=== PATIENT | male | born 1960 | race Caucasian/White ===

== ENCOUNTER 2016-11-12 20:20 | Emergency (ER) | payer MEDICAID ==
[2016-11-12 20:37] VITALS: BP 119/82; PULSE 64; RESP 16; TEMP 99; O2SAT 97
--- NOTE | 2016-11-12 20:55 | EDPHY ---
H & P Stated Complaint: says he was lifting something and felt some movement in lower back,c/o pain Time Seen by Provider: 11/12/16 20:43 HPI/ROS: CHIEF COMPLAINT: Lower back pain. HISTORY OF PRESENT ILLNESS: The patient is a 55-year-old male who presents with sacroiliac pain that began 4 days ago while lifting weights. He felt something "slip out of place at that time." The pain is radiating laterally across his back and into his buttocks. It does not radiate down a leg. No numbness, weakness, or paresthesias. Pain is worsened with movement. He admits reduced urinary output and "digestive problems." No incontinence. He has taken half of a Tramadol for the pain and used heat therapy. No fever, chills, chest pain, shortness of breath, palpitations, vomiting, diarrhea, urinary complaints , headache, lightheadedness. REVIEW OF SYSTEMS: Aside from elements discussed in the HPI, a comprehensive 10-point review of systems was reviewed and is negative. PAST MEDICAL HISTORY: Depressant. 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 VITAL SIGNS: Reviewed by me BACK: No CVA tenderness. No midline vertebral tenderness, swelling, or warmth. Tenderness over right SI joint to deep palpation.. EXTREMITIES: No trauma. No edema. Range of motion is normal throughout. NEURO: Alert and oriented, grossly nonfocal. Straight leg raise test is negative bilaterally. Hip flexion, knee extension, knee flexion, dorsiflexion and plantar flexion are 5/ 5 bilaterally. EHL 5 over 5. Sensation is intact to light touch throughout. 2+ knee and ankle jerk bilaterally. SKIN: Warm and dry, no rash. PSYCHIATRIC: Normal mentation, no agitation. Portions of this note were transcribed by a electromedical equipment technician. I personally performed a history, physical exam, medical decision making, and confirmed accuracy of information the transcribed note. 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; inguinal hernia; R hip surg, depression/anxiety - Social History Smoking Status: Former smoker Constitutional: Initial Vital Signs Temperature (C) 37.2 C 11/12/16 20:33 Heart Rate 64 11/12/16 20:33 Respiratory Rate 16 11/12/16 20:33 Blood Pressure 119/82 H 11/12/16 20:33 O2 Sat (%) 97 11/12/16 20:33 O2 Delivery Mode Room Air Allergies/Adverse Reactions: acetaminophen [From Vicodin] Allergy (Intermediate, Verified 11/12/16 20:37) Other-Enter Comments codeine Allergy (Intermediate, Verified 11/12/16 20:37) Other-Enter Comments hydrocodone bitartrate [From Vicodin] Allergy (Intermediate, Verified 11/12/16 20:37) Other-Enter Comments Home Medications: Medication Instructions Recorded Herbals/Supplements -Info Only 1 ea PO DAILY 01/18/16 Multivitamins [Multivitamin (*)] 1 each PO DAILY 01/18/16 Carisoprodol [Soma (*)] 350 mg PO TIDMEAL PRN #15 tab 11/12/16 Lexapro 11/12/16 methylPREDNISolone [Medrol Dose 4 mg PO DAILY #1 each 11/12/16 Valdo] traMADol [Ultram 50 mg (*)] 50 mg PO Q4 #20 tab 11/12/16 Medical Decision Making ED Course/Re-evaluation: Suspect musuloskeletal cause of pain. Doubt serious pathology of discitis, cauda equina, radiculopathy, epidural abscess, fracture, transvere myelitis. Will provide tramadol and medrol dose pack. FU with neurosurgery if no improvement. Consider physical therapy. Usual and customary back pain precautions provided. At this point I do not identify any indication for emergent MRI, however patient may necessitate this on an outpatient basis. Patient given acute back pain precautions. All questions and concerns have been addressed by me. Ample opportunity for questions have been provided . The patient understands that this diagnosis is provisional and can never be 100% accurate. Differential Diagnosis: UTI, musculoskeletal pain, discitis, cauda equina, fracture, spinal cord pathology, disc herniation. - Data Points Medications Given: Discontinued Medications Tramadol HCl (Ultram) 50 mg PO EDNOW ONE Stop: 11/12/16 21:08 Last Admin: 11/12/16 21:16 Dose: 50 mg Departure - Departure Disposition: Home, Routine, Self-Care Clinical Impression: SI (sacroiliac) pain Low back strain Qualifiers: Encounter type: initial encounter Qualified Code(s): S39.012A - Strain of muscle, fascia and tendon of lower back, initial encounter Condition: Good Instructions: Low Back Strain (ED) Additional Instructions: I recommend Ibuprofen (Motrin,Advil) or Naproxen Sodium (Aleve) for pain and anti-inflammatory effects. You may take either one, but do not take both. Your dose is: Ibuprofen 600mg every 6-8 hours with food. OR Naproxen Sodium (Aleve) 220mg every 12 hours. Take Tramadol as needed for severe pain. Take the steroid as prescribed. Call Dr. Liu, neurosurgery, in the next 3-4 days if symptoms are not improving. Return to the emergency department if you experience any serious worsening of condition. Referrals: Nelia Neely PA [Primary Care Provider] - As per Instructions Devin Liu MD [Medical Doctor] - As per Instructions Prescriptions: Carisoprodol [Soma (*)] 350 mg PO TIDMEAL PRN #15 tab PRN Reason: muscle spasm methylPREDNISolone [Medrol Dose Valdo] 4 mg PO DAILY #1 each traMADol [Ultram 50 mg (*)] 50 mg PO Q4 #20 tab Report Scribed for: Shannan Conner Report Scribed by: Seferino George Date of Report: 11/12/16 Time of Report: 20:44
[2016-11-12] MEDS ORDERED: traMADol 50 MG TAB PO ONE (21:07)
== END 2016-11-12 21:21 | disposition home or self-care (01) ==
DX: S39.012A Strain of muscle, fascia and tendon of lower back, initial encounter (principal); M53.3 Sacrococcygeal disorders, not elsewhere classified; Z87.891 Personal history of nicotine dependence; X50.0XXA Overexertion from strenuous movement or load, initial encounter

== ENCOUNTER 2017-02-25 22:50 | Emergency (ER) | payer MEDICAID ==
[2017-02-25] MEDS ORDERED: NS 1,000 ML IV ONE (22:56)
[2017-02-25] MEDS ORDERED: ONDANSETRON 4 MG/2 ML VIAL IVP ONE (22:56)
--- NOTE | 2017-02-25 23:00 | EDPHY ---
H & P HPI/ROS: HPI CHIEF COMPLAINT: Abdominal pain, nausea HISTORY OF PRESENT ILLNESS: This patient very pleasant 56-year-old male, presents emergency room with abdominal pain. He tells me this abdominal pain started suddenly approximately an hour ago. Sharp stabbing left-sided. Left lower quadrant region. It is associated nausea with the. No back pain. No testicular pain no urinary symptoms. Denies fever. Denies vomiting. No diarrhea. Does admit to nausea. Patient tells me that he has not any urinary symptoms. Does have a history of kidney stones. He states that he went for 70 mi bike ride. Danced and had 3 beers. Thinks he may have overdone it. Denies trauma. Past Medical History: Kidney stone Past Surgical History: Left inguinal groin hernia repair Social History: Admits to alcohol every day 3 beers. Denies illicit drugs or tobacco. Family History: Noncontributory ROS REVIEW OF SYSTEMS: A comprehensive 10 point review of systems is otherwise negative aside from elements mentioned in the history of present illness. Exam Constitutional appears well nontoxic, thin, triage nursing summary reviewed, vital signs reviewed, awake/alert. Eyes normal conjunctivae and sclera, EOMI, PERRLA. HENT normal inspection, atraumatic, moist mucus membranes, no epistaxis, neck supple/ no meningismus, no raccoon eyes. Respiratory clear to auscultation bilaterally, normal breath sounds, no respiratory distress, no wheezing. Cardiovascular rate normal, regular rhythm, no murmur, no edema, distal pulses normal. Gastrointestinal soft, minimal tenderness in the left lower quadrant,, no rebound, no guarding, normal bowel sounds, no distension, no pulsatile mass. Genitourinary no CVA tenderness. Musculoskeletal no midline vertebral tenderness, full range of motion, no calf swelling, no tenderness of extremities, no meningismus, good pulses, neurovascularly intact. Skin pink, warm, & dry, no rash, skin atraumatic. Neurologic awake, alert and oriented x 3, AAOx3, moves all 4 extremities equally, motor intact, sensory intact, CN II-XII intact, normal cerebellar, normal vision, normal speech. Psychiatric normal mood/affect. Heme/Lymph/Immune no lymphadenopathy. Differential diagnosis includes but is not limited to and in no particular order : Bowel obstruction, appendicitis, gallbladder disease, diverticulitis, colitis , enteritis, perforated viscus, gastritis, GERD, esophagitis, urinary tract infection, pyelonephritis, kidney stones Medical Decision Making: Plan for this patient IV establishment, blood draw, IV fluids, check abdominal blood work. CT abdomen pelvis with IV contrast. Re-evaluation: 1207AM: CT scan of the abdomen pelvis with IV contrast The results of the study are shows a large amount of stool in the right colon. Small bowel in is fluid-filled and distended. No transition point. Possible early SBO versus ileus.. The study was read by Dr. Parekh I viewed the images myself on the PACS system. 1224: Patient's potassium noted be low. I have ordered him IV potassium. And a 2nd L of fluid. I discussed his blood work and CT scan results with him. I will consult General surgery for possible evaluation of ileus versus SBO versus enteritis. Patient most likely will need to stay in the hospital overnight for observation. 1228AM: Spoke with Dr. Greene with surgery. He will review the CT scan evaluate the patient. EKG interpretation by me on record in [employer] system. Impression time of EKG 2302: This EKG is sinus bradycardia rate of 47. Nonspecific intraventricular conduction delay present. No acute ischemia. EKG interpreted by myself. 1258AM: Spoke with the hospitalist service who agrees to admit this patient. Dr. Bowie. 0150AM: After further discussion with the patient . He is refusing hospitalization. The patient wants to go home. He understands reason for admission to the hospital is for observation for his abdominal pain. He tells me this time he has no abdominal pain he is not nauseous. I did have surgery review his CT scan they feel this is significant constipation and unlikely be in bowel obstruction. Dr. Gerene. I explained allow the patient go home with some MiraLax. Will p. o. challenge 1st before going home. He does understand return emergency room if develops worsening abdominal pain, fever, vomiting. I went over this with him extensively strict return precautions given he understands. 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; inguinal hernia; R hip surg, depression/anxiety - Social History Smoking Status: Former smoker Constitutional: Initial Vital Signs Heart Rate 48 L 02/25/17 23:03 Respiratory Rate 19 02/25/17 23:03 Blood Pressure 118/77 02/25/17 23:03 O2 Sat (%) 100 02/25/17 23:03 O2 Delivery Mode Room Air Allergies/Adverse Reactions: acetaminophen [From Vicodin] Allergy (Intermediate, Verified 11/12/16 20:37) Other-Enter Comments codeine Allergy (Intermediate, Verified 11/12/16 20:37) Other-Enter Comments hydrocodone bitartrate [From Vicodin] Allergy (Intermediate, Verified 11/12/16 20:37) Other-Enter Comments Home Medications: Medication Instructions Recorded Herbals/Supplements -Info Only 1 ea PO DAILY 01/18/16 Multivitamins [Multivitamin (*)] 1 each PO DAILY 01/18/16 Carisoprodol [Soma (*)] 350 mg PO TIDMEAL PRN #15 tab 11/12/16 Lexapro 11/12/16 methylPREDNISolone [Medrol Dose 4 mg PO DAILY #1 each 11/12/16 Valdo] traMADol [Ultram 50 mg (*)] 50 mg PO Q4 #20 tab 11/12/16 Polyethylene Glycol 3350 [Miralax 17 gm PO DAILY #2 pkt 02/26/17 17 gm (*)] Medical Decision Making - Diagnostics Imaging Results: Imaging Impressions Abdomen CT 02/25/17 22:57 Impression: 1. Significant constipation in the right colon and rectosigmoid region. 2. Fluid-filled loops of small bowel throughout the abdomen and pelvis without significant dilatation but with air-fluid levels and no significant inflammatory change. This could be secondary to back up from the constipation the right colon, enteritis, or ileus. Partial small bowel obstruction less likely. 3. Possible hemangioma dome of the liver incompletely evaluated. Subcentimeter nonspecific lesion left lobe of the liver. Consider multiphase postcontrast evaluation with CT or MRI. Results called and discussed with Gaudencio Hill MD at 02/26/2017 0:11. - Data Points Laboratory Results: Laboratory Results 02/25/17 22:45 02/25/17 22:45 02/26/17 02/25/1717 00:30 22:45 22:45 WBC RBC Hgb Hct MCV MCH MCHC RDW Plt Count MPV Neut % (Auto) Lymph % (Auto) [place] % (Auto) Eos % (Auto) Baso % (Auto) Nucleat RBC Rel Count Absolute Neuts (auto) Absolute Lymphs (auto) Absolute Monos (auto) Absolute Eos (auto) Absolute Basos (auto) Absolute Nucleated RBC Immature Gran % Immature Gran # PT 13.6 SEC SEC (12.0-15.0) INR 1.05 (0.83-1.16) APTT 23.5 SEC SEC (23.0-38.0) Sodium 140 mEq/L mEq/L (134-144) Potassium 3.0 mEq/L L mEq/L (3.5-5.2) Chloride 104 mEq/L mEq/L (97-110) Carbon Dioxide 21 mEq/l L mEq/l (22-31) Anion Gap 15 mEq/L mEq/L (8-16) BUN 19 mg/dL mg/dL (7-23) Creatinine 0.9 mg/dL mg/dL (0.7-1.3) Estimated GFR > 60 Glucose 98 mg/dL mg/dL (70-100) Calcium 10.1 mg/dL mg/dL (8.5-10.4) Total Bilirubin 1.1 mg/dL mg/dL (0.1-1.4) Conjugated Bilirubin 0.2 mg/dL mg/dL (0.0-0.5) Unconjugated Bilirubin 0.9 mg/dL mg/dL (0.0-1.1) AST 32 IU/L IU/L (17-59) ALT 51 IU/L IU/L (21-72) Alkaline Phosphatase 64 IU/L IU/L (38-126) Total Protein 6.4 g/dL g/dL (6.3-8.2) Albumin 4.2 g/dL g/dL (3.5-5.0) Lipase 102.0 IU/L IU/L (23-300) Urine Color YELLOW Urine Appearance CLEAR Urine pH 5.0 (5.0-7.5) Ur Specific [place] > 1.035 H (1.002-1.030) Urine Protein NEGATIVE (NEGATIVE) Urine Ketones NEGATIVE (NEGATIVE) Urine Blood NEGATIVE (NEGATIVE) Urine Nitrate NEGATIVE (NEGATIVE) Urine Bilirubin NEGATIVE (NEGATIVE) Urine Urobilinogen NEGATIVE EU EU (0.2-1.0) Ur Leukocyte Esterase NEGATIVE (NEGATIVE) Urine Glucose NEGATIVE (NEGATIVE) 02/25/17 22:45 WBC 8.29 10^3/uL 10^3/uL (3.80-9.50) RBC 5.29 10^6/uL 10^6/uL (4.40-6.38) Hgb 16.6 g/dL g/dL (13.7-17.5) Hct 46.2 % % (40.0-51.0) MCV 87.3 fL fL (81.5-99.8) MCH 31.4 pg pg (27.9-34.1) MCHC 35.9 g/dL g/dL (32.4-36.7) RDW 12.8 % % (11.5-15.2) Plt Count 278 10^3/uL 10^3/uL (150-400) MPV 11.0 fL fL (8.7-11.7) Neut % (Auto) 49.1 % % (39.3-74.2) Lymph % (Auto) 38.1 % % (15.0-45.0) [place] % (Auto) 9.4 % % (4.5-13.0) Eos % (Auto) 1.9 % % (0.6-7.6) Baso % (Auto) 1.1 % % (0.3-1.7) Nucleat RBC Rel Count 0.0 % % (0.0-0.2) Absolute Neuts (auto) 4.07 10^3/uL 10^3/uL (1.70-6.50) Absolute Lymphs (auto) 3.16 10^3/uL H 10^3/uL (1.00-3.00) Absolute Monos (auto) 0.78 10^3/uL 10^3/uL (0.30-0.80) Absolute Eos (auto) 0.16 10^3/uL 10^3/uL (0.03-0.40) Absolute Basos (auto) 0.09 10^3/uL 10^3/uL (0.02-0.10) Absolute Nucleated RBC 0.00 10^3/uL 10^3/uL (0-0.01) Immature Gran % 0.4 % % (0.0-1.1) Immature Gran # 0.03 10^3/uL 10^3/uL (0.00-0.10) PT INR APTT Sodium Potassium Chloride Carbon Dioxide Anion Gap BUN Creatinine Estimated GFR Glucose Calcium Total Bilirubin Conjugated Bilirubin Unconjugated Bilirubin AST ALT Alkaline Phosphatase Total Protein Albumin Lipase Urine Color Urine Appearance Urine pH Ur Specific [place] Urine Protein Urine Ketones Urine Blood Urine Nitrate Urine Bilirubin Urine Urobilinogen Ur Leukocyte Esterase Urine Glucose Medications Given: Discontinued Medications Fentanyl (Sublimaze) 50 mcg IVP EDNOW ONE Stop: 02/25/17 23:37 Last Admin: 02/25/17 23:43 Dose: 50 mcg Sodium Chloride (Ns) 1,000 mls @ 0 mls/hr IV ONCE ONE; Wide Open PRN Reason: Protocol Stop: 02/25/17 22:57 Last Admin: 02/25/17 23:02 Dose: 1,000 mls Sodium Chloride (Ns) 1,000 mls @ 0 mls/hr IV ONCE ONE PRN Reason: Wide Open Stop: 02/26/17 00:25 Last Admin: 02/26/17 00:25 Dose: 1,000 mls Ondansetron HCl (Zofran) 4 mg IVP EDNOW ONE Stop: 02/25/17 22:57 Last Admin: 02/25/17 23:02 Dose: 4 mg Departure - Departure Disposition: Home, Routine, Self-Care Clinical Impression: Hypokalemia Abdominal pain Qualifiers: Abdominal location: generalized Qualified Code(s): R10.84 - Generalized abdominal pain Condition: Fair Instructions: Constipation (ED), Acute Abdominal Pain (ED), Hypokalemia (ED) Additional Instructions: 1. Return emergency room if he develops worsening abdominal pain, fever, vomiting. 2. I would stop drinking as much alcohol as you typically drink as well as stop taking the powder from over the counter. 3. Eat and drink a very bland diet over the next 48 hours. 4. Return immediately to emergency room if he develops worsening abdominal pain , fever, vomiting. Referrals: Patient,NotPresent [Unknown] - As per Instructions Prescriptions: Polyethylene Glycol 3350 [Miralax 17 gm (*)] 17 gm PO DAILY #2 pkt
--- NOTE | 2017-02-25 23:05 | CPEKG ---
Heart Rate: 47 RR Interval: 1277 P-R Interval: 180 QRSD Interval: 120 QT Interval: 508 QTC Interval: 450 P [place]: 65 QRS [place]: -66 T Wave [place]: 51 EKG Severity - ABNORMAL ECG - EKG Impression: SINUS BRADYCARDIA EKG Impression: VENTRICULAR PREMATURE COMPLEX EKG Impression: NONSPECIFIC IVCD WITH LAD Electronically Signed By: Gaudencio Hill 26-Feb-2017 07:22:40
[2017-02-25 23:06] LABS: % IMMATURE GRANULYOCYTES 0.4 % (0.0-1.1); ABSOLUTE IMMATURE GRANULOCYTES 0.03 10^3/uL (0.00-0.10); ADD DIFF? NO; ADD MORPH? NO; ADD SCAN? NO; ATYPICAL LYMPHOCYTE FLAG 40 (0-99); FRAGMENT RBC FLAG 0 (0-99); HEMATOCRIT 46.2 % (40.0-51.0); HEMOGLOBIN 16.6 g/dL (13.7-17.5); LEFT SHIFT FLG 0 (0-99); LIPEMIA HEMOLYSIS FLAG 90 (0-99); MEAN CELL HEMOGLOBIN 31.4 pg (27.9-34.1); MEAN CELL HEMOGLOBIN CONCENTR. 35.9 g/dL (32.4-36.7); MEAN CELL VOLUME 87.3 fL (81.5-99.8); PLATELET CLUMPS FLAG 0 (0-99); PLATELET COUNT 278 10^3/uL (150-400); RED BLOOD CELL COUNT 5.29 10^6/uL (4.40-6.38); RED CELL DISTRIBUTION WIDTH 12.8 % (11.5-15.2)
[2017-02-25] MEDS ORDERED: IOPAMIDOL (ISOVUE-300) 100 ML BTL ONE (23:06)
[2017-02-25 23:15] LABS: ALANINE AMINOTRANSFERASE 51 IU/L (21-72); ALBUMIN 4.2 g/dL (3.5-5.0); ALKALINE PHOSPHATASE 64 IU/L (38-126); ANION GAP 15 mEq/L (8-16); ASPARTATE AMINOTRANSFERASE 32 IU/L (17-59); BILIRUBIN,TOTAL 1.1 mg/dL (0.1-1.4); BILIRUBIN-CONJUGATED 0.2 mg/dL (0.0-0.5); BILIRUBIN-UNCONJUGATED 0.9 mg/dL (0.0-1.1); CALCIUM 10.1 mg/dL (8.5-10.4); CARBON DIOXIDE 21 mEq/l (22-31); CHLORIDE 104 mEq/L (97-110); CREATININE 0.9 mg/dL (0.7-1.3); GLOMERULAR FILTRATION RATE > 60; GLUCOSE 98 mg/dL (70-100); SODIUM 140 mEq/L (134-144); TOTAL PROTEIN 6.4 g/dL (6.3-8.2)
[2017-02-25 23:17] LABS: INR 1.05 (0.83-1.16); PROTIME(PATIENT) 13.6 SEC (12.0-15.0)
[2017-02-25 23:18] LABS: APTT 23.5 SEC (23.0-38.0)
[2017-02-25] MEDS ORDERED: fentaNYL 100 MCG/2 ML INJ IVP ONE (23:36)
[2017-02-26] MEDS: POTASSIUM Cl (KCl) 100 ML IV SCH ×2 (00:16→01:14)
[2017-02-26 00:22] VITALS: PULSE 58; TEMP 97.3
[2017-02-26] MEDS ORDERED: NS 1,000 ML IV ONE (00:24)
[2017-02-26 00:41] LABS: COLOR YELLOW; LEUKOCYTE ESTERASE,URINE NEGATIVE (NEGATIVE); NITRITE,URINE NEGATIVE (NEGATIVE)
[2017-02-26 02:05] VITALS: BP 100/66; RESP 17; O2SAT 99
== END 2017-02-26 02:21 | disposition home or self-care (01) ==
LOC: EDUNIT# → UNDOADMOB 02-26 00:57
DX: R10.84 Generalized abdominal pain (principal); E87.6 Hypokalemia; E86.9 Volume depletion, unspecified; Z87.891 Personal history of nicotine dependence
CPT/HCPCS: 96365; 96366; J2405; J3010; Q9967

== ENCOUNTER 2019-01-10 12:52 | Emergency (ER) | payer MEDICAID ==
--- NOTE | 2019-01-10 13:45 | EDPHY ---
General Time Seen by Provider: 01/10/19 13:44 Narrative: CLINICAL IMPRESSION: Lumbar back pain, scrotal paresthesia ASSESSMENT/PLAN: Patient is a 58 year old male with a significant medical history of ADHD, painful hemangiomas and chronic low back pain who presents with a complaint of acute low back pain after lifting and moving a heavy object 2 days ago. Patient is afebrile and not toxic appearing, he is in no acute distress on arrival. Strength and DTR's intact, perirectal sensation and rectal tone intact; query if recent vasectomy is contributing to sensation change of scrotum however concerning in light of development of this symptom when back pain started. Lumbar spine xray today with no acute findings. I discussed concerns of diminished scrotal sensation and recommended MRI for further evaluation. Patient vehemently refused MRI as he has been unable to tolerate in the past, refused sedation for MRI as well. I discussed at length that we are not able to exclude etiologies to include cauda equina, epidural abscess/hematoma, epidural compression syndrome with consequence of possible paralysis or even . Patient with mental capacity to refuse- informed refusal. He was formally evaluated by Neurosurgery in the ED, please refer to Dr. Gar's dictation. He is well established at [facility] and understands importance of being seen tomorrow. Ibuprofen, lidocaine patch placed and prednisone given in ED, Medrol dosepack prescribed. On repeat exam and prior to discharge he is well appearing, he is able to ambulated independently and without difficulty. Very strict return precautions discussed. DIFFERENTIAL DX: Back pain differential including but not limited to and in no particular order- myofascial strain, trauma, DDD, epidural compression, epidural hematoma, epidural abscess, cauda equina, shingles, ED COURSE: 1422: Discussed findings with the patient and concern for spinal cord involvement. Patient is refusing MRI, states that he will sign paperwork as he cannot tolerate an MRI. He understands that risks of not proceeding with MRI for further eval to include paralysis and even . 1425: Case discussed with Dr. Buckner. 1525: Dr. Gar here to evaluate the patient. CHIEF COMPLAINT: Lumbar Back Pain HPI: Patient is a 58-year-old male with a history of attention deficit hyperactivity disorder, multiple facial hemangiomas and chronic low back pain who presents to the emergency department with acutely worsening lumbar back pain after lifting a 5 gallon water bucket 2 days prior. Patient reports he had a vasectomy 8 days ago, has been doing well. Two days ago he lifted a 5 gal bucket and immediately experienced pain in his mid and right lower back region. Patient reports pain traveling up his spine, he denies any pain into his legs. Pain increases with any sort of movement. Patient does report decreased sensation in his perineal region over the last 2 days. Patient denies lower extremity numbness, tingling, major motor weakness, urinary retention or bowel/bladder incontinence. Patient denies any history of IV drug use, he has had no recent spinal procedures. He denies any fever, chills, chest pain or shortness of breath. He denies any abdominal pain or urinary symptoms to include dysuria, hematuria or frequency. Patient states this feels exactly like when he has had exacerbations of his lumbar back pain in the past. He has not had any formal follow-up for his back pain as it improved on its own previously. Has been taking his tramadol with mild relief. PMH: Attention deficit hyperactivity disorder, painful hemangiomas, chronic low back pain Pertinent Past Surgical History: Vasectomy Social History: Daily ETOH, no smoking or history of IV drug use. Massage therapist. REVIEW OF SYSTEMS: All other systems negative Constitutional: No fever, no chills, appetite change. Eyes: No discharge, vision change. ENT: No sore throat, congestion, ear pain. Cardiovascular: No chest pain, no palpitations. Respiratory: No cough, no shortness of breath. Gastrointestinal: No abdominal pain, no vomiting, diarrhea. Genitourinary: No hematuria, dysuria, flank pain. Musculoskeletal: Back pain. No joint swelling, joint pain, myalgias. Skin: No rashes, color change. Neurological: No headache, dizziness, weakness. PHYSICAL EXAM: General Appearance: Well-appearing, no acute distress and not toxic-appearing. Sitting on the floor with gown open to the front "that bed hurts my back worse" HENT: Normocephalic, atraumatic. Bilateral external ears are normal. Bilateral tympanic membranes are normal with pearly gerber reflex. Nares are clear, mucosa is pink. Oropharynx is clear, uvula is midline. Large hemangioma noted left lower lip. Eyes: PERRLA, EOMI. Conjunctiva pink, no pallor or injection. Neck: Supple, nontender, no lymphadenopathy, no midline pain, FROM. Back: No step-off, palpable bony abnormality, edema, erythema or ecchymosis of the thoracic or lumbar spines. TTP: mid lumbar spine, RSIJ and deep right gluteus muscle. Full ROM all spines. 5/5 and equal strength of the UEs and LEs bilaterally including shoulder shrug. Pulses: 2+ and equal radial, DP and PT pulses bilaterally. Sensation intact and symmetric to light touch from face, UEs and LEs bilaterally. UE/LE reflexes symmetric bilaterally. Straight leg raise negative bilaterally. Rectal exam with Rich surfacing technician. Patient with excellent rectal tone and perirectal sensation is intact. Diminished sensation inferior scrotal region. Low/medium concern for Acute Spinal Emergency (ASE) High Sensitivity Neuro Exam (HSNE) Thoracic pain T1: move fingers apart- no deficit T2-12: trunk sensation- no deficit Lumbar pain L1: inner thigh sensation- no deficit to inner thigh, decreased sensation along scrotum. L2: ADduct thigh (cross legs)- no deficit L3: Extend knee- no deficit L4: Ankle dorsiflexion- no deficit L5: Great toe extension- no deficit S1: Flex knee- no deficit S3-4: bladder/bowel function- no dysfunction Red flags: MINOR (1 pt each) Alcohol Abuse: Yes, 1 DM - No Renal - No Night pain - Yes, 1 3rd visit in <= 20 - No MAJOR (3 pts each) IVDA - No Fever without focus - No Recent/current systemic infection - No Immunosuppression (physician discretion)- No Recent spinal fracture/spinal procedure (ESR is not a good screen for spinal epidural hematoma) - No New bladder/bowel incontinence or retention: No Total Red Flag score- 2 Respiratory: There are no retractions, lungs are clear to auscultation. Cardiac: Regular rate and rhythm, no murmurs or gallops. Gastrointestinal: Abdomen is soft, nontender, bowel sounds normal, no masses/ hernia, no rigidity, guarding or focal peritoneal findings. Neurological: Alert and oriented x 3, CN 2-12 grossly intact. Skin: Warm, dry, no rashes. Musculoskeletal: Extremities are symmetrical, full range of motion, no tenderness, deformity, swelling, or erythema. Psychiatric: Mood and affect are normal, there is no agitation. MEDICAL DECISION MAKING: Patient was seen independently. Secondary supervising physician at time of evaluation was Dr. Buckner, she did not evaluate this patient. Diagnosis: Lumbar back pain, scrotal paresthesia. Summary: See assessment and plan. Clinical lab tests: Not applicable. Independent visualization of images, tracing, or specimens: Yes. Decision to obtain medical records or history from someone other than the patient: No Review / Summarize previous medical records: Yes Discussed patient with another provider: Yes, Dr. Buckner and Dr. Gar Patient Progress: Stable, discharged. - Diagnostics Imaging Results: Imaging Impressions Lumbar Spine X-Ray 01/10/19 14:21 Impression:Negative lumbar spine radiographs. Features of degenerative disk disease at T12-L1. - History Smoking Status: Former smoker - Objective Vital Signs: Initial Vital Signs Temperature (C) 36.4 C 01/10/19 12:58 Heart Rate 71 01/10/19 12:58 Respiratory Rate 18 01/10/19 12:58 Blood Pressure 117/97 H 01/10/19 12:58 O2 Sat (%) 97 01/10/19 12:58 O2 Delivery Mode Room Air Allergies/Adverse Reactions: acetaminophen [From Vicodin] Allergy (Intermediate, Verified 01/10/19 12:57) Other-Enter Comments codeine Allergy (Intermediate, Verified 01/10/19 12:57) Other-Enter Comments hydrocodone bitartrate [From Vicodin] Allergy (Intermediate, Verified 01/10/19 12:57) Other-Enter Comments Home Medications: Medication Instructions Recorded Carisoprodol [Soma (*)] 350 mg PO TIDMEAL PRN #15 tab 11/12/16 traMADol [Ultram 50 mg (*)] 50 mg PO Q4 #20 tab 11/12/16 methylPREDNISolone [Medrol Dose 1 each PO AD #1 ea 01/10/19 Valdo] Medications Given: Discontinued Medications Ibuprofen (Motrin) 600 mg PO EDNOW ONE Stop: 01/10/19 14:27 Last Admin: 01/10/19 14:48 Dose: 600 mg Prednisone (Prednisone) 60 mg PO EDNOW ONE Stop: 01/10/19 14:27 Last Admin: 01/10/19 14:48 Dose: 60 mg Departure - Departure Disposition: Home, Routine, Self-Care Clinical Impression: Lumbar back pain, Paresthesia Condition: Good Instructions: Acute Low Back Pain (ED) Additional Instructions: DISCHARGE INSTRUCTIONS FROM YOUR PROVIDER Thank you for visiting our emergency department today. It is imperative that you follow up with your primary care provider tomorrow. It is concerning that you have numbness in your scrotal area. Without an MRI we are unable to determine whether not you have spinal cord involvement. You have verbalize that you understand the risk of not having an MRI which includes paralysis. Rest. Avoid lifting greater than 10-15 pounds. Avoid twisting or prolonged sitting. Movement and gentle walking is good for your back. Try to walk for 15-10 minutes on an even surface 3 or 4 times a day as tolerated and increase gentle exercise as your back improves. Apply ice to your low back during acute pain phase, later a heating pad set to a low setting or hot tub may be helpful to help relax muscles. Ibuprofen 600 mg every 6-8 hours with food. Stop for stomach upset. Do not exceed 2400 mg in 24 hours. Continue the Medrol Dosepak as prescribed. Salonpas pain patch, please follow the instructions on the packaging. You may purchase this [id number] at your local pharmacy or grocery store Schedule a follow-up appointment with your primary care physician in the next 2- 3 days for re-evaluation. You may require further treatment, physical therapy and/or further future testing. Return for increased or unmanageable pain, new injury, new midline back pain, numbness, tingling, weakness of your legs, loss of bowel or bladder control, inability to urinate, burning or pain with urination, blood in the urine, fever , chills, abdominal pain, vomiting, difficulty walking, dizziness, fainting, chest pain, shortness of breath, neck pain, neck stiffness, other site of back pain, calf pain, leg redness or swelling, or for any other new, worsening or worrisome symptoms. People present with illnesses and injuries in different ways, and it is always possible that we have missed something. Again, thank you for choosing our emergency department. We hope that you feel better. Referrals: Nelia Neely PA [Primary Care Provider] - 1 day without fail Dedrick Gar MD [Medical Doctor] - As per Instructions Prescriptions: methylPREDNISolone [Medrol Dose Valdo] 1 each PO AD #1 ea
[2019-01-10] MEDS ORDERED: IBUPROFEN 600 MG TAB PO ONE (14:26)
[2019-01-10] MEDS ORDERED: predniSONE 20 MG TAB PO ONE (14:26)
[2019-01-10] MEDS ORDERED: LIDOCAINE 4%/MENTHOL 1% PATCH TD ONE (15:36)
[2019-01-10 15:45] VITALS: BP 111/81
--- NOTE | 2019-01-10 19:55 | GCON ---
[f rep st] CONSULTATION ER CONSULTATION DATE OF CONSULTATION: 01/10/2019 REASON FOR CONSULTATION: Exacerbation of low back pain with new scrotal numbness. Please note, the patient was seen in the emergency department by myself at 3:30 p.m. on January 10, 2019. HISTORY OF PRESENT ILLNESS: This is a 58-year-old gentleman with a known history of chronic low back pain, including attention deficit disorder, multiple facial hemangiomas, who works as a massage ther apist, and states that he has progressively worsening right sacroiliac and midthoracic pain, without new radiculopathy. The patient states he had a vasectomy approximately 8 days ago and was doing quit e well. Approximately 2 days ago, he lifted a 5 gallon bucket and immediately experienced severe nahomi n into the mid and right low back. He indicates it is over his right sacroiliac joint, which he has had previous issues with in the past. This then traveled up cranially on the right side of his thora cic spine. No new tingling, numbness, pain, or weakness in the lower extremities. Pain is worse wit h movement. He does describe decreased sensation on his scrotum, but no saddle anesthesia, and no yanci wel or bladder incontinence. He does not see anybody for pain management for his low back, and state s he has had over 20 MRI scans for his low back, and acute exacerbations or chronic pain. Denies any fevers, chills. PAST MEDICAL HISTORY: 1. Attention deficit hyperactivity disorder. 2. History of multiple facial hemangioma. 3. Chronic low back pain. PAST SURGICAL HISTORY: None. FAMILY HISTORY: Negative, noncontributory. 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 He is a former tobacco utilizer. ALLERGIES: 1. Vicodin. 2. Codeine. HOME MEDICATIONS: 1. Soma 350 mg p.o. three times daily p.r.n. 2. Tramadol 50 mg p.o. q.8 hours p.r.n. 3. Medrol Dosepak. REVIEW OF SYSTEMS: Complete 10-point review of systems from the patient intake form reviewed by vinh galeana, significant only for those noted above in the HPI. PHYSICAL EXAMINATION: VITAL SIGNS: Blood pressure 117/97, heart rate 71, respiratory rate is 18, sa turating 97% on room air. Temperature is 36.4. GENERAL: The patient is sitting at the bedside in n o acute distress. He is quite pleasant and cooperative with examination. HEENT: Head is atraumatic , normocephalic. Pupils are equal, round, and reactive to light bilaterally. Extraocular movements are intact. Tongue protrusion is midline. NEUROLOGIC: Cranial nerves 2 through 12 are intact. Pup ils are equal, round, and reactive to light bilaterally. Tongue protrudes midline. Uvula and palate elevate symmetrically. He has intact sensation to light touch on his face bilaterally, and he has i ntact hearing to light finger scratch bilaterally. Shoulder shrug is symmetric. Motor exam shows 5/ 5 strength with bilateral salesperson jewelry strength, biceps, triceps, deltoids, bilateral hip flexion, knee flexi on and extension, plantar and dorsiflexion, and extensor hallucis longus. OTHER: He has intact sens ation to light touch throughout all major dermatomes of the bilateral upper and lower extremities. N o saddle anesthesia. Normal rectal tone. Normal gait, and ambulation, and stability. No pain over the midline, thoracic, or lumbar spine. MEDICAL DECISION MAKING: Patient underwent an x-ray of the lumbar [facility] This was reviewed by myself. There is degenerat nadia disease throughout the lumbar spine including T12-L1. No evidence of any fractures. Overall ali gnment is intact. ASSESSMENT/PLAN: The patient is a 58-year-old gentleman, who presents to the Emergency Department wi th a 2-day history of some exacerbated right lumbar spine pain radiating up to the thoracic spine, an d some new scrotal numbness without any evidence of saddle anesthesia, or bowel or bladder incontinen ce, or neurological deficits. I explained to the patient that in addition to the emergency room PA, that imaging studies including an MRI scan would be necessary to further evaluate his symptomatology, and to ensure that he is not developing cauda equina symptoms. Overall, he does not appear to have cauda equina, though the new scrotal numbness is new; however, in the setting of a recent vasectomy 8 days ago, it is difficult to discern the significance of this. I explained to the patient that an M RI is the only way that we can determine this, and without an MRI and if there is any progressive sym ptomatology, he could have permanent neurological deficit, including loss of bowel or bladder functio n, loss of lower extremity functionality including paralysis. The patient has refused our recommenda tions in the Emergency Department today. I explained to him that I cannot make any further recommend ations for him without imaging studies, and did again review and reiterated the risks to him. He exp licitly explained that he understood these to me, and stated he would try to treat his symptoms with further stretching, ice, ibuprofen, steroids, and if his symptoms progress, he would consider getting an MRI as an outpatient. He wants to follow up with his primary care physician. This is fine from our standpoint. At this point, he will follow up as needed and only if his symptomatology progresses . The patient clearly understood my recommendations, and again refused, and he will be discharged fr om the Emergency Department with a prednisone Dosepak. /[id number]/MODL
[2019-01-10] MEDS ORDERED: PATCH REMOVAL 1 EA PATCH TD SCH (21:00)
== END 2019-01-10 15:43 | disposition home or self-care (01) ==
DX: M54.5 Low back pain (principal); N50.89 Other specified disorders of the male genital organs
CPT/HCPCS: J7512